=== PATIENT | female | born 1985 | race African-American/Black ===

== ENCOUNTER 2016-07-20 22:07 | Emergency (ER) | payer OTHER ==
[~2016-07-20] VITALS: Ht 172.7 cm; Wt 72.7 kg
[~2016-07-20 22:07] MED LIST: CYMBALTA 60MG60 MG PO; FLEXERIL 1010 MG/TAB PO; FLORICET; NEURONTIN300 MG/CAP PO; NO HOME MEDICATIONS; NORCO 325 MG-51 TAB PO; NORCO 325 MG-7.1 TAB PO; PRENATAL1 TA1; PROZAC 20MG20 MG PO; STRATTERA60 MG PO; VALIUM 2MG T2 MG/TAB PO; VYVANSE60 MG PO; ZOFRAN 4MG T4 MG/TAB PO
[2016-07-20 22:09] VITALS: BP 124/73; TEMP 97
[2016-07-20] MEDS ORDERED: PREDNISONE20 MG PO (23:02)
[2016-07-20 23:08] VITALS: PULSE 87
== END 2016-07-20 23:08 | disposition home or self-care (01) ==
LOC: COL.ER 22:07
DX: J45.909 Unspecified asthma, uncomplicated (principal); Z87.891 Personal history of nicotine dependence
CPT/HCPCS: J7512

== ENCOUNTER 2017-06-11 12:25 | Emergency (ER) | payer OTHER ==
[~2017-06-11] VITALS: Ht 172.7 cm; Wt 78.2 kg
[~2017-06-11 12:25] MED LIST changes: +PREDNISONE20 MG PO
[2017-06-11 12:27] VITALS: TEMP 97.5
[2017-06-11 14:57] LABS: BASO # 0.1 (0.0-0.2); BASO % 0.5 % (0.0-2.0); EOS # 0.2 (0.0-0.7); EOS % 1.3 % (0-4.0); GRAN # 10.3 (1.4-6.5); GRAN % 81.4 % (42.2-75.2); HEMATOCRIT 38.9 % (37.0-47.0); HEMOGLOBIN 13.2 g/dl (12.5-16.0); LYMPH # 1.4 (1.2-3.4); LYMPH % 11.2 % (20.0-51.0); MEAN CELL VOLUME 92 fl (80.0-100.0); MEAN CORPUSCULAR HEMOGLOBIN 31 pg (27.0-31.0); MEAN CORPUSCULAR HGB CONC 34 g/dl (33.0-37.0); MEAN PLATELET VOLUME 10.1 fl (7.4-10.4); MONO # 0.6 (0.1-0.6); MONO % 4.7 % (1.7-9.3); PLATELET COUNT 271 K/mm3 (130-400); RED BLOOD COUNT 4.24 M/mm3 (4.10-5.30)
[2017-06-11 15:08] LABS: ALBUMIN 3.8 gm/dL (3.5-5.0); BILIRUBIN,TOTAL 0.3 mg/dL (0.0-1.0); CALCIUM 9.5 mg/dL (8.4-10.2); CREATININE, serum 0.77 mg/dL (0.52-1.25); POTASSIUM 4.3 mmol/L (3.4-5.0); TOTAL PROTEIN 7.2 gm/dL (6.4-8.2)
[2017-06-11 15:22] LABS: COLLECTION METHOD CLEAN CATCH
[2017-06-11 15:32] LABS: MUCOUS Present /lpf; PH 6 (5-8); URINE APPEARANCE Clear; URINE BACTERIA Rare /hpf; URINE BILIRUBIN Negative (NEGATIVE); URINE BLOOD Negative (NEGATIVE); URINE COLOR Yellow; URINE GLUCOSE Negative (NEGATIVE); URINE KETONE Trace (NEGATIVE); URINE LEUKOCYTE ESTERASE Trace (NEGATIVE); URINE NITRATE Negative (NEGATIVE); URINE PROTEIN(semi-quant) Negative (NEGATIVE); URINE RBC 0-2 /hpf; URINE UROBILINOGEN Negative (NEGATIVE)
[2017-06-11] MEDS ORDERED: ZOFRAN ODT4 MG PO (15:57)
[2017-06-11 16:10] VITALS: BP 123/64; PULSE 92
== END 2017-06-11 16:15 | disposition home or self-care (01) ==
LOC: COL.ER 12:25
PROVIDERS: Emergency Medicine
DX: E86.9 Volume depletion, unspecified (principal); Z90.49 Acquired absence of other specified parts of digestive tract; Z87.891 Personal history of nicotine dependence
CPT/HCPCS: J2765; J7030